=== PATIENT | male | born 1960 | race Hispanic/Latino ===

== ENCOUNTER 2020-12-24 13:36 | Emergency (ER) | payer SELFPAY ==
--- NOTE | 2020-12-24 14:14 | Emergency Department Report ---
ED Shortness of Breath HPI - General Chief Complaint: Arrhythmia/Palpitations Stated Complaint: ARRITHMIA, HEEL ON FOOT Time Seen by Provider: 12/24/20 14:09 Source: patient Mode of arrival: Ambulatory Limitations: No Limitations - History of Present Illness Initial Comments: Patient is 60 years old male with history of congestive heart failure, atrial fibrillation on Eliquis. Patient stated that he was diagnosed with Covid pneumonia 3 weeks ago but he tested negative after that. Patient complaining of shortness of breath for the last few days and he is afraid that his pneumonia is coming back. Patient denied any fever or chills. No chest pain. Patient is also complaining of right heel pain. No injury. MD Complaint: shortness of breath - Related Data Allergies Allergy/AdvReac Type Severity Reaction Status Date / Time No Known Allergies Allergy Unverified 12/24/20 13:38 ED Review of Systems ROS: Stated complaint: ARRITHMIA, HEEL ON FOOT Other details as noted in HPI Comment: All other systems reviewed and negative Constitutional: denies: chills, fever Respiratory: shortness of breath. denies: cough Cardiovascular: denies: chest pain, palpitations Gastrointestinal: denies: abdominal pain, nausea, vomiting Musculoskeletal: denies: back pain Neurological: denies: headache, weakness, numbness, paresthesias, confusion ED Past Medical Hx - Past Medical History Additional medical history: Heart arrythmia, ??Afib - Surgical History Past Surgical History?: Yes Additional Surgical History: Abd surgery, 2 colostomy bags ED Physical Exam - General Limitations: No Limitations General appearance: alert, in no apparent distress - Head Head exam: Present: atraumatic, normocephalic, normal inspection - Eye Eye exam: Present: normal appearance, PERRL - ENT ENT exam: Present: normal exam, normal orophraynx, mucous membranes moist - Neck Neck exam: Present: normal inspection, full ROM. Absent: tenderness, meningismus - Respiratory Respiratory exam: Present: normal lung sounds bilaterally - Cardiovascular Cardiovascular Exam: Present: irregular rhythm. Absent: systolic murmur, diastolic murmur - GI/Abdominal GI/Abdominal exam: Present: soft, normal bowel sounds. Absent: distended, tenderness, guarding, rebound, rigid, organomegaly, mass, bruit, pulsatile mass, hernia - Extremities Exam Extremities exam: Present: normal inspection, full ROM. Absent: tenderness, normal capillary refill, pedal edema, joint swelling, calf tenderness - Back Exam Back exam: Present: normal inspection, full ROM. Absent: CVA tenderness (R), CVA tenderness (L) - Neurological Exam Neurological exam: Present: alert, oriented X3, CN II-XII intact, normal gait, reflexes normal. Absent: motor sensory deficit - Psychiatric Psychiatric exam: Present: normal mood - Skin Skin exam: Present: warm, intact, normal color ED Course Vital Signs 12/24/20 12/24/20 13:42 13:56 Temperature 97.8 F Pulse Rate 96 H Respiratory 24 Rate Blood Pressure 171/129 [Right] ED Medical Decision Making - Lab Data Result diagrams: 12/24/20 14:59 12/24/20 14:59 - EKG Data -: EKG Interpreted by Me Rate: normal - EKG Data Interpretation: no acute changes 12/24/20 16:05 Atrial fibrillation with controlled rate of 94. - Radiology Data Radiology results: report reviewed - Medical Decision Making Patient is 60 years old male with history of congestive heart failure, atrial fibrillation on Eliquis. Patient stated that he was diagnosed with Covid pneumonia 3 weeks ago but he tested negative after that. Patient complaining of shortness of breath for the last few days and he is afraid that his pneumonia is coming back. Patient denied any fever or chills. No chest pain. Patient is also complaining of right heel pain. No injury. Patient remained stable in the ER with stable vital sign. Chest x-ray is negative for acute finding. Labs reviewed and showed significantly elevated BNP consistent with his CHF. 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 Critical care attestation.: If time is entered above; I have spent that time in minutes in the direct care of this critically ill patient, excluding procedure time. ED Disposition Clinical Impression: CHF exacerbation, Plantar fasciitis of right foot Disposition: HOME / SELF CARE / HOMELESS Is pt being admited?: No Condition: Stable Instructions: Plantar Fasciitis, Heart Failure, Diagnosis Referrals: PRIMARY CARE, [Primary Care Provider] - 3-5 Days
--- NOTE | 2020-12-24 14:43 | XRay Report ---
CHEST 2 VIEWS INDICATION / CLINICAL INFORMATION: Dyspnea. COMPARISON: None available. FINDINGS: SUPPORT DEVICES: None. HEART / MEDIASTINUM: No significant abnormality. LUNGS / PLEURA: No significant pulmonary abnormality. No significant pleural effusion. No pneumothora x. ADDITIONAL FINDINGS: Mild degenerative changes are seen along the spine. IMPRESSION: 1. No acute abnormality of the chest. Signer Name: Peter Munoz MD Signed: 12/24/2020 2:39 PM Workstation Name: [id number]
[2020-12-24 15:11] LABS: Basophils % (Auto) 0.6 % (0.0-1.8); Eosinophils # (Auto) 0.2 K/mm3 (0.0-0.4); Eosinophils % (Auto) 3.6 % (0.0-4.3); Hematocrit 44.8 % (35.5-45.6); Hemoglobin 15.1 gm/dl (11.8-15.2); Lymphocytes # (Auto) 1.7 K/mm3 (1.2-5.4); Lymphocytes % (Auto) 27.5 % (13.4-35.0); Mean Corpuscular HGB Conc 34 % (32-34); Mean Corpuscular Volume 88 fl (84-94); Monocytes # (Auto) 0.5 K/mm3 (0.0-0.8); Monocytes % (Auto) 8.7 % (0.0-7.3); Platelet Count 148 K/mm3 (140-440); Red Blood Count 5.08 M/mm3 (3.65-5.03); Red Cell Distribution Width 15.7 % (13.2-15.2)
[2020-12-24 15:22] LABS: Calcium 9.6 mg/dL (8.4-10.2); INR 0.97 (0.87-1.13)
[2020-12-24 15:23] LABS: Partial Thromboplastin Time 29.8 Sec. (24.2-36.6)
[2020-12-24 15:25] LABS: Alanine Aminotransferase 19 units/L (7-56); Albumin 3.7 g/dL (3.9-5)
[2020-12-24 15:26] LABS: Bilirubin,Direct < 0.2 mg/dL (0-0.2)
[2020-12-24] MEDS ORDERED: FUROSEMIDE 20 MG TAB PO ONE (15:30)
[2020-12-24 16:29] VITALS: BP 151/98
--- NOTE | 2020-12-25 14:25 | Electrocardiograph Report ---
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
== END 2020-12-24 16:30 | disposition home or self-care (01) ==
LOC: ED 13:36
DX: I50.9 Heart failure, unspecified (principal); M72.2 Plantar fascial fibromatosis; I48.91 Unspecified atrial fibrillation
CPT/HCPCS: 36415; 71046; 80048; 80076; 83880; 84484; 85025; 85610; 85730; 93005

== ENCOUNTER 2021-01-06 06:54 | Emergency (ER) | payer SELFPAY ==
--- NOTE | 2021-01-06 07:59 | XRay Report ---
XR chest routine 2V INDICATION / CLINICAL INFORMATION: sob. COMPARISON: 12/24/2020 FINDINGS: SUPPORT DEVICES: None. HEART /PULMONARY VASCULATURE: No significant abnormality LUNGS / PLEURA: Mild increased interstitial opacities throughout the lungs. No sizable pleural effusi on. No pneumothorax. ADDITIONAL FINDINGS: No significant additional findings. IMPRESSION: Increased interstitial opacities, which may reflect pulmonary edema or interstitial infiltrate. Signer Name: Ronnell Green MD Signed: 01/06/2021 7:54 AM Workstation Name: [id number]
--- NOTE | 2021-01-06 09:25 | Emergency Department Report ---
ED Shortness of Breath HPI - General Chief Complaint: Dyspnea/Respdistress Stated Complaint: SOB,GRISELDA Time Seen by Provider: 01/06/21 07:59 Source: patient Mode of arrival: Ambulatory Limitations: No Limitations - History of Present Illness Initial Comments: 60-year-old male with a past medical history of atrial fibrillation and possible CHF presents to the hospital planing of progressively worsening shortness of breath for the last 3 months. Patient having cough productive of fluid/sputum. Dyspnea occurs at rest, lying supine, and worse with exertion. Patient complains of chest tightness without pain. Intermittent wheezing reported. Patient states he has decreased his smoking to 1/4 pack/day. He is compliant with his Eliquis. He has been out of his unknown diuretic for the last 3 to 4 weeks. Patient lives in [place] and has been traveling to several states such as [place], [place], and [place] via car over the last several months for work. 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 Patient states he is immunized for Covid with last dose December 22, 2020. Patient was diagnosed with pneumonia last month but states he has tested negative for Covid at that time (contrary to what is documented on previous ER note). He denies history of calf tenderness, leg edema, history of PE or DVT. Patient was here in December 24, 2020 with complaints of shortness of breath. Chest x-ray read as negative at that time. Received p.o. Lasix 40 mg prior to discharge. Discharged on Zofran and tramadol for plantar fasciitis pain - Related Data Previous Rx's Medication Instructions Recorded Last Taken Type Ondansetron [Zofran Odt] 4 mg PO Q8HR PRN #14 tab.rapdis 12/24/20 Unknown Rx traMADoL [Ultram 50 MG tab] 50 mg PO Q4HR PRN #14 tablet 12/24/20 Unknown Rx Albuterol Sulfate [Proventil Hfa] 6.7 gm IH Q4HR PRN #1 hfa.aer.ad 01/06/21 Unknown Rx Amlodipine Besylate [Norvasc] 5 mg PO DAILY #30 tablet 01/06/21 Unknown Rx Apixaban [Eliquis] 5 mg PO BID #60 tablet 01/06/21 Unknown Rx Furosemide [Lasix] 20 mg PO QDAY #30 tablet 01/06/21 Unknown Rx Allergies Allergy/AdvReac Type Severity Reaction Status Date / Time No Known Allergies Allergy Verified 01/06/21 07:15 ED Review of Systems ROS: Stated complaint: SOB,GRISELDA Other details as noted in HPI ED Past Medical Hx - Past Medical History Previous Medical History?: Yes Hx Congestive Heart Failure: Yes Hx COPD: Yes (Emphysema) Additional medical history: Heart arrythmia, atrial fibrillation - Surgical History Past Surgical History?: Yes Additional Surgical History: Abd surgery, 2 colostomy bags - Social History Smoking Status: Current Every Day Smoker - Medications Home Medications: Home Medications Medication Instructions Recorded Confirmed Last Taken Type Ondansetron [Zofran Odt] 4 mg PO Q8HR PRN #14 tab.rapdis 12/24/20 01/06/21 Unknown Rx traMADoL [Ultram 50 MG tab] 50 mg PO Q4HR PRN #14 tablet 12/24/20 01/06/21 Unknown Rx Albuterol Sulfate [Proventil Hfa] 6.7 gm IH Q4HR PRN #1 hfa.aer.ad 01/06/21 Unk nown Rx Amlodipine Besylate [Norvasc] 5 mg PO DAILY #30 tablet 01/06/21 Unknown Rx Apixaban [Eliquis] 5 mg PO BID #60 tablet 01/06/21 Unknown Rx Furosemide [Lasix] 20 mg PO QDAY #30 tablet 01/06/21 Unknown Rx ED Physical Exam - General Limitations: No Limitations - Other Other exam information: General: No acute distress Head: Atraumatic Eyes: normal appearance ENT: Moist mucous membranes Neck: Normal appearance, no midline tenderness Chest: Mild crackles auscultated in the right base, tachypnea with minimal CV: Regular rate and rhythm Abdomen: Soft, normal bowel sounds, nontender, nondistended, no rebound or guarding Back: Normal inspection Extremity: Normal inspection, full range of motion, no calf tenderness, 1+ pitting lower extremity edema Neuro: Alert O x 3, no facial asymmetry, speech clear, no gross motor sensory deficit Psych: Appropriate behavior Skin: No rash ED Course Vital Signs 01/06/21 01/06/21 01/06/21 07:08 08:44 11:39 Temperature 97.5 F L Pulse Rate 116 H 89 Respiratory 22 18 18 Rate Blood Pressure 165/115 152/110 [Left] O2 Sat by Pulse 96 97 95 Oximetry ED Medical Decision Making - Lab Data Result diagrams: 01/06/21 09:20 01/06/21 09:20 Lab Results 01/06/21 01/06/21 01/06/21 Range/Units 09:20 09:20 09:20 WBC 6.6 (4.5-11.0) K/mm3 RBC 4.90 (3.65-5.03) M/mm3 Hgb 14.8 (11.8-15.2) gm/dl Hct 43.8 (35.5-45.6) % MCV 89 (84-94) fl MCH 30 (28-32) pg MCHC 34 (32-34) % RDW 17.0 H (13.2-15.2) % Plt Count 163 (140-440) K/mm3 Lymph % (Auto) 18.2 (13.4-35.0) % [place] % (Auto) 7.2 (0.0-7.3) % Eos % (Auto) 2.7 (0.0-4.3) % Baso % (Auto) 0.5 (0.0-1.8) % Lymph # (Auto) 1.2 (1.2-5.4) K/mm3 [place] # (Auto) 0.5 (0.0-0.8) K/mm3 Eos # (Auto) 0.2 (0.0-0.4) K/mm3 Baso # (Auto) 0.0 (0.0-0.1) K/mm3 Seg Neutrophils % 71.4 H (40.0-70.0) % Seg Neutrophils # 4.7 (1.8-7.7) K/mm3 D-Dimer 314.06 H (0-234) ng/mlDDU Sodium 141 (137-145) mmol/L Potassium 4.7 (3.6-5.0) mmol/L Chloride 106.1 (98-107) mmol/L Carbon Dioxide 25 (22-30) mmol/L Anion Gap 15 mmol/L BUN 16 (9-20) mg/dL Creatinine 1.0 (0.8-1.3) mg/dL Estimated GFR > 60 ml/min BUN/Creatinine Ratio 16 % Glucose 76 (75-100) mg/dL Calcium 9.3 (8.4-10.2) mg/dL Total Bilirubin 0.60 (0.1-1.2) mg/dL AST 25 (5-40) units/L ALT 31 (7-56) units/L Alkaline Phosphatase 62 (35-129) units/L Troponin T < 0.010 (0.00-0.029) ng/mL NT-Pro-B Natriuret Pep 4687 H (0-900) pg/mL Total Protein 7.1 (6.3-8.2) g/dL Albumin 3.9 (3.9-5) g/dL Albumin/Globulin Ratio 1.2 % - EKG Data -: EKG Interpreted by Me (Atrial fibrillation) EKG shows normal: ST-T waves (No STEMI) Rate: tachycardia (109) - Radiology Data Radiology results: report reviewed XR chest routine 2V INDICATION / CLINICAL INFORMATION: sob. COMPARISON: 12/24/2020 FINDINGS: SUPPORT DEVICES: None. HEART /PULMONARY VASCULATURE: No significant abnormality LUNGS / PLEURA: Mild increased interstitial opacities throughout the lungs. No sizable pleural effusion. No pneumothorax. ADDITIONAL FINDINGS: No significant additional findings. IMPRESSION: Increased interstitial opacities, which may reflect pulmonary edema or interstitial infiltrate. CTA CHEST WITH CONTRAST INDICATION / CLINICAL INFORMATION: Shortness of breath. TECHNIQUE: Axial CT images were obtained through the chest after injection of the patient received 100 cc Omnipaque 350 intravenously. IV contrast. 3 plane MIP and/or 3D reconstructions were produce d. All CT scans at this location are performed using CT dose reduction for ALARA by means of automated exposure control. COMPARISON: None available. FINDINGS: PULMONARY ARTERIES: There is good opacification of the pulmonary arterial system bilaterally without intraluminal filling defect to suggest acute PTE. THORACIC AORTA: Mild atherosclerotic calcification without acute abnormality. HEART: Mild cardiomegaly. CORONARY ARTERY CALCIFICATION: Mild. MEDIASTINUM / DINESH: There is mild bilateral hilar and mediastinal lymphadenopathy. PLEURA: There are minimal bilateral pleural effusions, larger on the right. No pneumothorax. LUNGS: Interstitial lung markings are mildly increased diffusely with a few Steven B lines present.. There are confluent changes of centrilobular emphysema. There is substantial paraseptal emphysema. ADDITIONAL FINDINGS: None. UPPER ABDOMEN: No acute findings. SKELETAL STRUCTURES: No significant osseous abnormality. IMPRESSION: 1. No CT evidence for pulmonary embolism. 2. Mild congestive heart failure superimposed on emphysema. 2. Mild generalized nonspecific mediastinal and hilar lymphadenopathy. - Medical Decision Making 60-year-old male presents to the hospital with shortness of breath secondary to CHF exacerbation and noncompliance with diuretics. Patient compliant with his Eliquis. CT chest angiogram negative for pulmonary embolism and confirmed CHF with combination of emphysema. Patient continues to smoke cigarettes but denies history of bronchodilator use but reports intermittent history of wheezing. Patient feeling much better after 1 dose of IV Lasix 40 mg and prefers to go home and follow-up. Patient provided prescription for Lasix and states that he "eats lots of bananas", Eliquis, and albuterol inhaler to be used as needed. No signs of hypoxia in the ED. Patient will also be started on Norvasc for elevated blood pressure which has been consistent with both ED visit Critical Care Time: No Critical care attestation.: If time is entered above; I have spent that time in minutes in the direct care of this critically ill patient, excluding procedure time. ED Disposition Clinical Impression: CHF exacerbation, Chronic atrial fibrillation, Current use of watermelon inspector anticoagulation, Noncompliance with medication regimen, Hypertension, Emphysema lung Disposition: 01 HOME / SELF CARE / HOMELESS Is pt being admited?: No Does the pt Need Aspirin: No Condition: Stable Instructions: Atrial Fibrillation, Hypertension (ED), Heart Failure, Diagnosis, Hypertension, Adult, Bleeding Precautions When on Anticoagulant Therapy, Adult, Chronic Obstructive Pulmonary Disease (ED), Chronic Obstructive Pulmonary Disease, [id number] Additional Instructions: Take the medication as prescribed. Follow-up with your doctor or doctor/clinic provided. Return if symptoms worsen as indicated by your discharge i nstructions. It is very important to follow-up with your physician to reassess your status while taking these newly prescribed medications. These medications may cause a variety of side effects including electrolyte abnormalities such as low potassium, dehydration leading to kidney damage, and low blood pressure. Prescriptions: Apixaban [Eliquis] 5 mg PO BID #60 tablet Furosemide [Lasix] 20 mg PO QDAY #30 tablet Amlodipine Besylate [Norvasc] 5 mg PO DAILY #30 tablet Albuterol Sulfate [Proventil Hfa] 6.7 gm IH Q4HR PRN #1 hfa.aer.ad PRN Reason: Wheezing Referrals: PRIMARY CARE, [Primary Care Provider] - 3-5 Days ANA MCFADDEN MD [Staff Physician] - 3-5 Days (Cardiology) CHAS BENITES MD [Staff Physician] - 3-5 Days (Primary care doctor) [facility] [Provider Group] - 3-5 Days (Primary care clinic) Time of Disposition: 13:32
[2021-01-06 10:29] LABS: Basophils % (Auto) 0.5 % (0.0-1.8); Eosinophils # (Auto) 0.2 K/mm3 (0.0-0.4); Eosinophils % (Auto) 2.7 % (0.0-4.3); Hematocrit 43.8 % (35.5-45.6); Hemoglobin 14.8 gm/dl (11.8-15.2); Lymphocytes # (Auto) 1.2 K/mm3 (1.2-5.4); Lymphocytes % (Auto) 18.2 % (13.4-35.0); Mean Corpuscular HGB Conc 34 % (32-34); Mean Corpuscular Volume 89 fl (84-94); Monocytes # (Auto) 0.5 K/mm3 (0.0-0.8); Monocytes % (Auto) 7.2 % (0.0-7.3); Platelet Count 163 K/mm3 (140-440)
[2021-01-06 10:46] LABS: Alanine Aminotransferase 31 units/L (7-56); Albumin 3.9 g/dL (3.9-5); BUN/Creatinine Ratio 16; Blood Urea Nitrogen 16 mg/dL (9-20); Calcium 9.3 mg/dL (8.4-10.2); Hemolysis Index 23
[2021-01-06] MEDS ORDERED: FUROSEMIDE 40 MG/4 ML INJ IV ONE (11:30)
[2021-01-06 11:40] VITALS: BP 152/110
--- NOTE | 2021-01-06 12:25 | Cat Scan Report ---
CTA CHEST WITH CONTRAST INDICATION / CLINICAL INFORMATION: Shortness of breath. TECHNIQUE: Axial CT images were obtained through the chest after injection of the patient received 10 0 cc Omnipaque 350 intravenously. IV contrast. 3 plane MIP and/or 3D reconstructions were produced. A ll CT scans at this location are performed using CT dose reduction for ALARA by means of automated ex posure control. COMPARISON: None available. FINDINGS: PULMONARY ARTERIES: There is good opacification of the pulmonary arterial system bilaterally without intraluminal filling defect to suggest acute PTE. THORACIC AORTA: Mild atherosclerotic calcification without acute abnormality. HEART: Mild cardiomegaly. CORONARY ARTERY CALCIFICATION: Mild. MEDIASTINUM / DINESH: There is mild bilateral hilar and mediastinal lymphadenopathy. PLEURA: There are minimal bilateral pleural effusions, larger on the right. No pneumothorax. LUNGS: Interstitial lung markings are mildly increased diffusely with a few Steven B lines present.. There are confluent changes of centrilobular emphysema. There is substantial paraseptal emphysema. ADDITIONAL FINDINGS: None. UPPER ABDOMEN: No acute findings. SKELETAL STRUCTURES: No significant osseous abnormality. IMPRESSION: 1. No CT evidence for pulmonary embolism. 2. Mild congestive heart failure superimposed on emphysema. 2. Mild generalized nonspecific mediastinal and hilar lymphadenopathy. Signer Name: Jason Means MD Signed: 01/06/2021 12:21 PM Workstation Name: [id number]
--- NOTE | 2021-01-07 13:09 | Electrocardiograph Report ---
[facility] Test Date: 2021-01-06 Test Time: 13:17:21 Pat Name: MADELEINE CANTU Department: Room: Gender: M [employer] Shift Lead: [id number] : 1960 Requested By: PAPI HARP Order Number: [id number] Reading MD: Cody Crowley Measurements Intervals [place] Rate: 109 P: [place]: QRS: -24 QRSD: 88 T: 141 QT: 333 QTc: 450 Interpretive Statements Atrial fibrillation Ventricular premature complex Anterolateral infarct, age indeterminate Compared to ECG 12/24/2020 13:50:13 Ventricular premature complex(es) now present Myocardial infarct finding now present Left-axis deviation no longer present T-wave abnormality no longer present Electronically Signed On 01-07-2021 13:09:15 EDT by Cody Crowley
== END 2021-01-06 14:25 | disposition home or self-care (01) ==
LOC: ED 06:54
DX: I50.9 Heart failure, unspecified (principal); I48.20 Chronic atrial fibrillation, unspecified; Z79.01 Long term (current) use of anticoagulants; I11.0 Hypertensive heart disease with heart failure; Z91.14 Patient's other noncompliance with medication regimen; J43.9 Emphysema, unspecified; J44.9 Chronic obstructive pulmonary disease, unspecified; F17.200 Nicotine dependence, unspecified, uncomplicated
CPT/HCPCS: 36415; 71046; 71275; 80053; 83880; 84484; 85025; 85379; 93005; 96374; 99284; J1940; Q9967